=== PATIENT | female | born 1980 | race Caucasian/White ===

== ENCOUNTER 2017-03-09 22:02 | Emergency (ER) | payer SELFPAY ==
[~2017-03-09] VITALS: Ht 165.1 cm; Wt 51.3 kg
--- NOTE | 2017-03-09 22:33 | NUR ---
[address]RA [address] FOR ETOH, NAD NOTED, VSS, RESP EVEN AND UNLABORED, WAITING FOR MD RIDDLE.
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
--- NOTE | 2017-03-10 04:48 | NUR ---
PT REC'D AN APPLE JUICE AND AN ORANGE JUICE.
[2017-03-10 06:00] VITALS: BP 128/87
== END 2017-03-10 05:52 | disposition home or self-care (01) ==
LOC: ER 22:11
DX: F10.129 Alcohol abuse with intoxication, unspecified (principal); R73.09 Other abnormal glucose
CPT/HCPCS: 82962; 99283; A4606; Z7610

== ENCOUNTER 2017-03-12 12:28 | Emergency (ER) | payer SELFPAY ==
[~2017-03-12] VITALS: Ht 160 cm; Wt 55.3 kg
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
[2017-03-12 12:59] LABS: BASOPHILS # (AUTO) 0.2 /CMM (0.0-0.2); BASOPHILS % (AUTO) 1.8 % (0.0-2.0); EOSINOPHILS # (AUTO) 0.1 /CMM (0.0-0.7); HEMATOCRIT 35 % (33-45); HEMOGLOBIN 11.9 g/dL (11.5-14.8); LYMPHOCYTES # (AUTO) 1.2 /CMM (0.8-4.8); LYMPHOCYTES % (AUTO) 10.4 % (20.0-44.0); MEAN CORPUSCULAR HEMOGLOBIN 31 PG (26.0-33.0); MEAN CORPUSCULAR HGB CONC 34 g/dl (31.0-36.0); MEAN CORPUSCULAR VOLUME 89 fL (82-100); MONOCYTES # (AUTO) 0.6 /CMM (0.1-1.30); MONOCYTES % (AUTO) 5.7 % (2.0-12.0); NEUTROPHILS # (AUTO) 9.3 /CMM (1.8-8.9); NEUTROPHILS % (AUTO) 81.1 % (43.0-81.0); PLATELET COUNT (AUTO) 300 /CMM (150-450); RDW COEFFICIENT OF VARIATION 13.3 (11.5-15.0); RED BLOOD CELL COUNT(AUTO) 3.88 MIL/uL (4.0-5.2); WHITE BLOOD COUNT (AUTO) 11.4 K/uL (4.3-11.0)
[2017-03-12 13:09] LABS: CALCIUM, SERUM 8.8 mg/dL (8.5-10.1); CREATININE 0.6 mg/dL (0.6-1.3); POTASSIUM 3.3 mmol/L (3.5-5.1)
--- NOTE | 2017-03-12 13:11 | NUR ---
Patient discharged to home in stable condition. Written and verbal after care instructions given. Patient verbalizes understanding of instruction.
[2017-03-12 13:12] VITALS: BP 130/80
[2017-03-12 13:14] LABS: INR 0.9 (0.87-1.13); PROTHROMBIN TIME 9.4 SECS (9.5-12.7)
[2017-03-12 13:21] LABS: ALBUMIN 3.6 g/dL (3.4-5.0); BILIRUBIN,DIRECT 0.2 mg/dL (0.0-0.2); BILIRUBIN,TOTAL 0.6 mg/dL (0.2-1.0)
== END 2017-03-12 13:30 | disposition home or self-care (01) ==
LOC: ER 12:29
DX: S91.302A Unspecified open wound, left foot, initial encounter (principal); S05.12XA Contusion of eyeball and orbital tissues, left eye, initial encounter; S05.11XA Contusion of eyeball and orbital tissues, right eye, initial encounter; F10.10 Alcohol abuse, uncomplicated; X58.XXXA Exposure to other specified factors, initial encounter; Y93.89 Activity, other specified; Y92.481 Parking lot as the place of occurrence of the external cause; Y99.8 Other external cause status
CPT/HCPCS: 36415; 80048; 80076; 85025; 85730; 99284; A4606; Z7610